=== PATIENT | male | born 1965 | race Caucasian/White ===

== ENCOUNTER 2022-05-06 19:43 | Emergency (ER) | payer OTHER, MEDICAID ==
[~2022-05-06] VITALS: Ht 167.6 cm; Wt 108.8 kg
[2022-05-06 23:56] LABS: CHLORIDE 104 mEq/L (98-107)
[2022-05-07 00:12] LABS: BASOPHILS % 0.5 % (0.0-2.0); HEMATOCRIT. 42.3 % (42.0-52.0); HEMOGLOBIN. 14.7 g/dL (14.0-18.0); LYMPHOCYTES % 36.5 % (20.0-50.0); MEAN CORPUSCULAR HEMOGLOBIN 28.6 pg (28.0-32.0); MEAN CORPUSCULAR VOLUME 82.2 fL (80.0-94.0); MEAN PLATELET VOLUME 8.3 fl (7.4-10.4); MONOCYTES % 5.6 % (2.0-8.0); NEUTROPHILS % 52.4 % (40.0-76.0); PLATELET 121 x1000/uL (130-400); RED BLOOD CELL COUNT 5.15 mill/uL (4.7-6.1); RED CELL DISTRIBUTION WIDTH 14.6 % (11.6-14.6)
[2022-05-07 00:56] LABS: PLATELET ESTIMATE SLIGHTLY DECREASED
[2022-05-07] MEDS ORDERED: HYDROCODONE/ACETAMINOPHEN 5/325MG TABLET PO NR (01:17)
[2022-05-07] MEDS ORDERED: SODIUM CHLORIDE 0.9% 1,000 ML IV ONE (03:00)
[2022-05-07] MEDS ORDERED: IOHEXOL-300 100 ML BOTTLE ONE (04:54)
[2022-05-07] MEDS ORDERED: IBUP-2028 MT (06:28)
[2022-05-07 07:30] VITALS: BP 135/78
== END 2022-05-07 07:43 | disposition home or self-care (01) ==
LOC: ER 20:01
DX: R10.9 Unspecified abdominal pain (principal); V43.02XA Car driver injured in collision with other type car in nontraffic accident, initial encounter; Y93.89 Activity, other specified; Y92.410 Unspecified street and highway as the place of occurrence of the external cause; Z85.05 Personal history of malignant neoplasm of liver; Z98.890 Other specified postprocedural states
CPT/HCPCS: 36415; 74177; 80053; 83690; 85025; 93005; 96360; 99285; Q9967

== ENCOUNTER 2022-07-02 12:07 | Emergency (ER) | payer MEDICAID, OTHER ==
[~2022-07-02] VITALS: Ht 175.3 cm; Wt 92.0 kg
[~2022-07-02 12:07] MED LIST: IBUP-2028 MT
[2022-07-02 14:14] LABS: CHLORIDE 99 mEq/L (98-107)
[2022-07-02 14:19] LABS: HEMATOCRIT. 46.3 % (42.0-52.0); HEMOGLOBIN. 15.4 g/dL (14.0-18.0); MEAN CORPUSCULAR HEMOGLOBIN 27.9 pg (28.0-32.0); MEAN CORPUSCULAR VOLUME 83.7 fL (80.0-94.0); MEAN PLATELET VOLUME 8.6 fl (7.4-10.4); PLATELET 119 x1000/uL (130-400); RED BLOOD CELL COUNT 5.53 mill/uL (4.7-6.1); RED CELL DISTRIBUTION WIDTH 14.9 % (11.6-14.6)
[2022-07-02 14:25] LABS: ETHANOL BLOOD < 10 mg/dL
[2022-07-02] MEDS ORDERED: ASPIRIN 81MG TABLET PO ONE (15:00)
[2022-07-02] MEDS ORDERED: MORPHINE SULFATE 4 MG/ML CPJ (NOT FOR IM USE) IV ONE (16:45)
[2022-07-02 17:11] LABS: PLATELET ESTIMATE DECREASED
[2022-07-02] MEDS ORDERED: MORPHINE SULFATE 4 MG/ML CPJ (NOT FOR IM USE) IV NR (19:07)
[2022-07-02] MEDS ORDERED: ONDANSETRON HCL 4MG/2ML INJ IV ONE (19:45)
[2022-07-02 19:51] LABS: *AMPHETAMINES SCREEN URINE NEGATIVE (NEGATIVE); *BARBITURATES SCREEN URINE NEGATIVE (NEGATIVE); *BENZODIAZEPINES SCREEN URINE NEGATIVE (NEGATIVE); *COCAINE SCREEN URINE NEGATIVE (NEGATIVE); CANNABINOID URINE SCREEN PRESUMTIVE POSITIVE (NEGATIVE); METHADONE URINE SCREEN NEGATIVE (NEGATIVE); OPIATES URINE SCREEN NEGATIVE (NEGATIVE); PHENCYCLIDINE URINE SCREEN NEGATIVE (NEGATIVE)
[2022-07-02 23:20] VITALS: BP 140/86
== END 2022-07-02 23:31 | disposition short-term general hospital (02) ==
LOC: ER 12:07 → CANBEDREQ 17:53 → ER 23:31
DX: R07.9 Chest pain, unspecified (principal); I51.7 Cardiomegaly; K70.30 Alcoholic cirrhosis of liver without ascites; Z85.05 Personal history of malignant neoplasm of liver
CPT/HCPCS: 36415; 71045; 80053; 80305; 80320; 83690; 83880; 84484; 85025; 93005; 96374; 96375; 99285; J2270; J2405; Z7610; G0480